=== PATIENT | female | born 1985 | race African-American/Black ===

== ENCOUNTER 2022-10-30 00:10 | Inpatient (IN) | payer SELFPAY ==
[2022-10-30] MEDS ORDERED: SODIUM CHLORIDE 0.9% 500 ML INFUS.BAG IV ONE (00:29)
[2022-10-30] MEDS ORDERED: HYDROmorphone HCl 2 MG/ML VIAL IM ONE ×3 (00:31→02:56)
[2022-10-30] MEDS ORDERED: HYDROmorphone HCl 2 MG/ML VIAL ONE ×3 (00:32→02:57)
[2022-10-30 02:15] LABS: BASO % 1.4 % (0-2.0); EOS % 0.5 % (0-4.5); HEMATOCRIT 30.7 % (32.4-45.2); HEMOGLOBIN 10.1 GM/dL (10.7-15.3); LYMPH % 24.9 % (8-40); MCH 28.6 pg (25.7-33.7); MCHC 32.9 g/dl (32.0-36.0); MEAN CELL VOLUME 86.9 fl (80-96); MEAN PLT VOLUME 9.1 fl (7.5-11.1); MONO % 9.1 % (3.8-10.2); NEUT % 64.1 % (42.8-82.8); PLATELET COUNT 372 10^3/uL (134-434); RBC 3.53 M/mm3 (3.60-5.2); RDW 17.3 % (11.6-15.6); RETICULOCYTES 2.14 % (0.5-1.5); WHITE BLOOD COUNT 8.5 K/mm3 (4.0-10.0)
[2022-10-30 02:30] LABS: POTASSIUM 3.8 mmol/L (3.5-5.1)
[2022-10-30 02:32] LABS: ALBUMIN 3.5 g/dl (3.4-5.0)
[2022-10-30 02:33] LABS: BLOOD UREA NITROGEN 24.9 mg/dL (7-18)
[2022-10-30 02:35] LABS: CREATININE 2.2 mg/dL (0.55-1.3)
[2022-10-30 02:37] LABS: BILIRUBIN,TOTAL 0.3 mg/dL (0.2-1); TOT PROT 7.9 g/dl (6.4-8.2)
[2022-10-30 03:58] LABS: ANISOCYTOSIS 2+; MACROCYTOSIS 0; OVALOCYTE 2+; TEAR DROP CELLS 1+
[2022-10-30] MEDS ORDERED: SODIUM CHLORIDE 1,000 ML IV SCH (05:00)
[2022-10-30] MEDS ORDERED: TRIMETHOBENZAMIDE HCL 200MG/2ML INJ IM PRN (05:12)
[2022-10-30] MEDS: HYDROmorphone HCl 2 MG/ML VIAL IM PRN ×6 (06:13→23:47)
[2022-10-30] MEDS: HEPARIN NA (PORCINE) 5,000 UNITS/ML 1ML VIAL SQ SCH ×3 (06:21→21:55)
[2022-10-30] MEDS ORDERED: INSULIN (NOVOLOG) ASPART 100 UNITS/ML 10ML VIAL ONE ×2 (06:34→16:26)
[2022-10-30] MEDS: INSULIN SLIDING SCALE (NOVOLOG) 1 VIAL SQ SCH ×3 (06:36→16:28)
[2022-10-30 07:45] VITALS: BMI 47.7
[2022-10-30 08:54] LABS: BASO % 2.5 % (0-2.0); EOS % 0.5 % (0-4.5); HEMOGLOBIN 10.1 GM/dL (10.7-15.3); LYMPH % 25.2 % (8-40); MCH 28.7 pg (25.7-33.7); MCHC 32.5 g/dl (32.0-36.0); MEAN CELL VOLUME 88.4 fl (80-96); MEAN PLT VOLUME 9.6 fl (7.5-11.1); MONO % 9.5 % (3.8-10.2); NEUT % 62.3 % (42.8-82.8); PLATELET COUNT 369 10^3/uL (134-434); RBC 3.51 M/mm3 (3.60-5.2); RDW 17.6 % (11.6-15.6); RETICULOCYTES 2.45 % (0.5-1.5); WHITE BLOOD COUNT 8.1 K/mm3 (4.0-10.0)
[2022-10-30] MEDS: FOLIC ACID 1 MG TABLET (FP) PO SCH (09:20)
[2022-10-30 10:20] LABS: POTASSIUM 3.8 mmol/L (3.5-5.1)
[2022-10-30 10:22] LABS: CALCIUM 9.7 mg/dL (8.5-10.1)
[2022-10-30 10:23] LABS: ALBUMIN 3.7 g/dl (3.4-5.0); BLOOD UREA NITROGEN 30.1 mg/dL (7-18); MAGNESIUM 2.1 mg/dL (1.8-2.4)
[2022-10-30 10:26] LABS: PHOSPHOROUS 3.3 mg/dL (2.5-4.9)
[2022-10-30 10:27] LABS: CREATININE 3.4 mg/dL (0.55-1.3)
[2022-10-30 10:28] LABS: BILIRUBIN,TOTAL 0.4 mg/dL (0.2-1); TOT PROT 8.2 g/dl (6.4-8.2)
[2022-10-30] MEDS ORDERED: LIDOCAINE HCL 1%, 10 MG/ML (50 mL VIAL) INF STA (11:55)
[2022-10-30] MEDS ORDERED: LIDOCAINE HCL 1%, 10 MG/ML (10ML VIAL) MDV INF STA (12:02)
[2022-10-30] MEDS: HYDROXYUREA 500 MG CAPSULE PO SCH ×2 (12:29→21:59)
[2022-10-30] MEDS ORDERED: HYDROmorphone HCl 2 MG/ML VIAL IVPB PRN (13:24)
[2022-10-30] MEDS ORDERED: ONDANSETRON 4 MG/2 ML VIAL IVPUSH PRN (14:20)
[2022-10-30] MEDS: SODIUM CHLORIDE 0.45% 1,000 ML IV SCH (14:40)
[2022-10-30] MEDS: GABAPENTIN 300 MG CAPSULE PO SCH ×2 (14:50→21:57)
[2022-10-30] MEDS: LIDOCAINE 5% TOPICAL PATCH TP SCH (14:53)
[2022-10-30] MEDS: ACETAMINOPHEN 500 MG TABLET (FP) PO SCH ×3 (14:54→21:59)
[2022-10-30] MEDS: MICONAZOLE NITRATE 2% VAGINAL CREAM 45 GM TUBE VG SCH (21:57)
[2022-10-30] MEDS: LIDOCAINE PATCH REMOVAL MC SCH (22:07)
[2022-10-31] MEDS: ACETAMINOPHEN 500 MG TABLET (FP) PO SCH ×4 (01:59→21:57)
[2022-10-31] MEDS: HYDROmorphone HCl 2 MG/ML VIAL IM PRN ×7 (03:44→23:42)
[2022-10-31] MEDS: SODIUM CHLORIDE 0.45% 1,000 ML IV SCH ×3 (03:45→13:41)
[2022-10-31 04:22] LABS: EPI CELLS >36 /uL (0-25.1); HYALINE CASTS 21 /uL (0-3.1); URINE APPEARANCE TURBID; URINE BACTERIA 103 /uL (0-1359); URINE BILIRUBIN NEGATIVE (NEGATIVE); URINE COLOR YELLOW; URINE GLUCOSE (UA) 2+ (NEGATIVE); URINE KETONE TRACE (NEGATIVE); URINE LEUK ESTERASE 1+ (NEGATIVE); URINE NITRITE NEGATIVE (NEGATIVE); URINE PROTEIN 3+ (NEGATIVE); URINE UROBILINOGEN 0.2 mg/dL (0.2-1.0); URINE WBC 929 /uL (0-25.8)
[2022-10-31 04:25] LABS: URINE UREA NITROGEN 259 mg/dL (350-1000)
[2022-10-31 04:43] LABS: URINE RBC 28.4 /uL (0-23.9)
[2022-10-31] MEDS: GABAPENTIN 300 MG CAPSULE PO SCH ×3 (06:13→21:05)
[2022-10-31] MEDS: INSULIN SLIDING SCALE (NOVOLOG) 1 VIAL SQ SCH ×3 (06:13→17:12)
[2022-10-31] MEDS: HEPARIN NA (PORCINE) 5,000 UNITS/ML 1ML VIAL SQ SCH ×3 (06:13→21:04)
[2022-10-31] MEDS ORDERED: INSULIN (NOVOLOG) ASPART 100 UNITS/ML 10ML VIAL ONE ×2 (06:19→11:10)
[2022-10-31 08:55] LABS: BASO % 0.8 % (0-2.0); EOS % 1.6 % (0-4.5); HEMATOCRIT 28.5 % (32.4-45.2); HEMOGLOBIN 9.1 GM/dL (10.7-15.3); LYMPH % 40.8 % (8-40); MCH 28.7 pg (25.7-33.7); MCHC 31.9 g/dl (32.0-36.0); MEAN CELL VOLUME 89.9 fl (80-96); MEAN PLT VOLUME 9.7 fl (7.5-11.1); MONO % 9.3 % (3.8-10.2); NEUT % 47.5 % (42.8-82.8); PLATELET COUNT 239 10^3/uL (134-434); RBC 3.17 M/mm3 (3.60-5.2); RDW 17.6 % (11.6-15.6); RETICULOCYTES 2.71 % (0.5-1.5); WHITE BLOOD COUNT 6.7 K/mm3 (4.0-10.0)
[2022-10-31 09:13] LABS: CHLORIDE 99 mmol/L (98-107); POTASSIUM 4.1 mmol/L (3.5-5.1); SODIUM 131 mmol/L (136-145)
[2022-10-31 09:18] LABS: CALCIUM 8.4 mg/dL (8.5-10.1)
[2022-10-31 09:19] LABS: ALBUMIN 3.3 g/dl (3.4-5.0); ANION GAP 8 MMOL/L (8-16); BLOOD UREA NITROGEN 37.9 mg/dL (7-18); CO2 25 mmol/L (21-32); MAGNESIUM 2.1 mg/dL (1.8-2.4)
[2022-10-31 09:20] LABS: SGPT/ALT 19 U/L (13-61)
[2022-10-31 09:21] LABS: CREATININE 4.9 mg/dL (0.55-1.3); SGOT/AST 14 U/L (15-37)
[2022-10-31 09:22] LABS: BILIRUBIN,TOTAL 0.3 mg/dL (0.2-1)
[2022-10-31 09:23] LABS: ALK PHOS 80 U/L (45-117); TOT PROT 7.2 g/dl (6.4-8.2)
[2022-10-31 09:47] LABS: GLUCOSE,RANDOM 405 mg/dL (74-106)
[2022-10-31] MEDS: HYDROXYUREA 500 MG CAPSULE PO SCH ×2 (10:04→21:04)
[2022-10-31] MEDS: FOLIC ACID 1 MG TABLET (FP) PO SCH (10:04)
[2022-10-31] MEDS: LIDOCAINE 5% TOPICAL PATCH TP SCH (10:05)
[2022-10-31] MEDS: CEPHALEXIN MONOHYDRATE 500 MG CAPSULE (UD) PO SCH ×2 (10:06→21:04)
[2022-10-31] MEDS: INSULIN (LEVEMIR) 100 UNITS/ML UNITS SQ SCH ×2 (11:16→21:04)
[2022-10-31] MEDS ORDERED: FLUCONAZOLE 100 MG TABLET (UD) PO ONE (12:08)
[2022-10-31] MEDS: LIDOCAINE PATCH REMOVAL MC SCH (21:04)
[2022-10-31] MEDS: MICONAZOLE NITRATE 2% VAGINAL CREAM 45 GM TUBE VG SCH (21:05)
[2022-11-01] MEDS: ACETAMINOPHEN 500 MG TABLET (FP) PO SCH ×4 (02:54→20:49)
[2022-11-01] MEDS: HYDROmorphone HCl 2 MG/ML VIAL IM PRN ×5 (03:05→21:33)
[2022-11-01] MEDS: SODIUM CHLORIDE 0.45% 1,000 ML IV SCH ×2 (04:49→16:48)
[2022-11-01] MEDS ORDERED: INSULIN (NOVOLOG) ASPART 100 UNITS/ML 10ML VIAL ONE ×4 (05:14→16:31)
[2022-11-01] MEDS: GABAPENTIN 300 MG CAPSULE PO SCH ×3 (06:00→22:38)
[2022-11-01] MEDS: HEPARIN NA (PORCINE) 5,000 UNITS/ML 1ML VIAL SQ SCH ×3 (06:00→22:36)
[2022-11-01] MEDS: INSULIN (LEVEMIR) 100 UNITS/ML UNITS SQ SCH ×2 (06:00→22:38)
[2022-11-01] MEDS: INSULIN SLIDING SCALE (NOVOLOG) 1 VIAL SQ SCH ×4 (06:00→22:40)
[2022-11-01] MEDS ORDERED: HYDROmorphone HCl 2 MG/ML VIAL IM PRN ×2 (08:24→08:31)
[2022-11-01 08:37] LABS: BASO % 0.4 % (0-2.0); EOS % 1.8 % (0-4.5); HEMATOCRIT 26.2 % (32.4-45.2); HEMOGLOBIN 8.7 GM/dL (10.7-15.3); LYMPH % 38.1 % (8-40); MCH 29.7 pg (25.7-33.7); MCHC 33.3 g/dl (32.0-36.0); MEAN CELL VOLUME 89.1 fl (80-96); MONO % 8.4 % (3.8-10.2); NEUT % 51.3 % (42.8-82.8); PLATELET COUNT 223 10^3/uL (134-434); RBC 2.94 M/mm3 (3.60-5.2); RDW 17.5 % (11.6-15.6); WHITE BLOOD COUNT 6.1 K/mm3 (4.0-10.0)
[2022-11-01 09:03] LABS: POTASSIUM 4.3 mmol/L (3.5-5.1)
[2022-11-01 09:10] LABS: BLOOD UREA NITROGEN 38.1 mg/dL (7-18); CALCIUM 8.7 mg/dL (8.5-10.1)
[2022-11-01 09:13] LABS: CREATININE 2.6 mg/dL (0.55-1.3)
[2022-11-01 09:15] LABS: BILIRUBIN,TOTAL 0.4 mg/dL (0.2-1)
[2022-11-01] MEDS: LIDOCAINE 5% TOPICAL PATCH TP SCH (09:28)
[2022-11-01] MEDS: HYDROXYUREA 500 MG CAPSULE PO SCH ×2 (09:28→22:41)
[2022-11-01] MEDS: CEPHALEXIN MONOHYDRATE 500 MG CAPSULE (UD) PO SCH ×2 (09:28→22:38)
[2022-11-01] MEDS: FOLIC ACID 1 MG TABLET (FP) PO SCH (09:29)
[2022-11-01] MEDS: MICONAZOLE NITRATE 2% VAGINAL CREAM 45 GM TUBE VG SCH (22:42)
[2022-11-01] MEDS: LIDOCAINE PATCH REMOVAL MC SCH (22:43)
[2022-11-02] MEDS: HYDROmorphone HCl 2 MG/ML VIAL IM PRN ×2 (02:02→06:07)
[2022-11-02] MEDS: ACETAMINOPHEN 500 MG TABLET (FP) PO SCH ×4 (02:30→20:12)
[2022-11-02] MEDS: HEPARIN NA (PORCINE) 5,000 UNITS/ML 1ML VIAL SQ SCH ×3 (07:10→21:31)
[2022-11-02] MEDS: GABAPENTIN 300 MG CAPSULE PO SCH ×3 (07:11→21:30)
[2022-11-02] MEDS: INSULIN (LEVEMIR) 100 UNITS/ML UNITS SQ SCH ×2 (07:12→21:43)
[2022-11-02] MEDS: INSULIN SLIDING SCALE (NOVOLOG) 1 VIAL SQ SCH ×4 (07:14→21:42)
[2022-11-02] MEDS ORDERED: HYDROmorphone HCl 2 MG/ML VIAL IM PRN (07:18)
[2022-11-02 08:05] LABS: POTASSIUM 4.2 mmol/L (3.5-5.1)
[2022-11-02 08:11] LABS: ALBUMIN 2.9 g/dl (3.4-5.0); BASO % 0.8 % (0-2.0); BLOOD UREA NITROGEN 35.7 mg/dL (7-18); HEMATOCRIT 25.7 % (32.4-45.2); HEMOGLOBIN 8.4 GM/dL (10.7-15.3); LYMPH % 45.8 % (8-40); MCHC 32.8 g/dl (32.0-36.0); MEAN CELL VOLUME 88.5 fl (80-96); MEAN PLT VOLUME 9.9 fl (7.5-11.1); MONO % 7.4 % (3.8-10.2); PLATELET COUNT 211 10^3/uL (134-434); RDW 17.3 % (11.6-15.6); WHITE BLOOD COUNT 5.9 K/mm3 (4.0-10.0)
[2022-11-02 08:14] LABS: CREATININE 1.9 mg/dL (0.55-1.3)
[2022-11-02 08:15] LABS: BILIRUBIN,TOTAL 0.2 mg/dL (0.2-1)
[2022-11-02 08:16] LABS: TOT PROT 6.6 g/dl (6.4-8.2)
[2022-11-02] MEDS: HYDROXYUREA 500 MG CAPSULE PO SCH ×2 (10:12→21:30)
[2022-11-02] MEDS: CEPHALEXIN MONOHYDRATE 500 MG CAPSULE (UD) PO SCH ×2 (10:12→21:30)
[2022-11-02] MEDS: FOLIC ACID 1 MG TABLET (FP) PO SCH (10:12)
[2022-11-02] MEDS: LIDOCAINE 5% TOPICAL PATCH TP SCH (10:14)
[2022-11-02] MEDS ORDERED: amLODIPine BESYLATE 5 MG TABLET (FP) PO ONE ×2 (11:15→14:40)
[2022-11-02] MEDS ORDERED: INSULIN (NOVOLOG) ASPART 100 UNITS/ML 10ML VIAL ONE ×3 (11:48→21:40)
[2022-11-02] MEDS: SODIUM CHLORIDE 0.45% 1,000 ML IV SCH (15:01)
[2022-11-02] MEDS ORDERED: hydrALAZINE HCL 10 MG TABLET PO ONE (18:38)
[2022-11-02] MEDS: hydrALAZINE HCL 10 MG TABLET PO SCH (21:30)
[2022-11-02] MEDS: MICONAZOLE NITRATE 2% VAGINAL CREAM 45 GM TUBE VG SCH (21:45)
[2022-11-02] MEDS: LIDOCAINE PATCH REMOVAL MC SCH (21:47)
[2022-11-03] MEDS: ACETAMINOPHEN 500 MG TABLET (FP) PO SCH ×4 (03:21→14:18)
[2022-11-03] MEDS: GABAPENTIN 300 MG CAPSULE PO SCH ×2 (06:12→13:13)
[2022-11-03] MEDS: HEPARIN NA (PORCINE) 5,000 UNITS/ML 1ML VIAL SQ SCH ×2 (06:12→13:13)
[2022-11-03] MEDS: hydrALAZINE HCL 10 MG TABLET PO SCH ×2 (06:13→13:12)
[2022-11-03] MEDS: INSULIN (LEVEMIR) 100 UNITS/ML UNITS SQ SCH (06:13)
[2022-11-03] MEDS: INSULIN SLIDING SCALE (NOVOLOG) 1 VIAL SQ SCH ×3 (06:25→16:23)
[2022-11-03] MEDS: HYDROXYUREA 500 MG CAPSULE PO SCH (09:02)
[2022-11-03] MEDS: FOLIC ACID 1 MG TABLET (FP) PO SCH (09:02)
[2022-11-03] MEDS: LIDOCAINE 5% TOPICAL PATCH TP SCH (09:04)
[2022-11-03] MEDS ORDERED: amLODIPine BESYLATE 5 MG TABLET (FP) PO SCH ×2 (10:00→11:16)
[2022-11-03] MEDS ORDERED: HYDROmorphone HCL 2 MG TABLET ONE ×2 (10:14→14:19)
[2022-11-03 10:31] VITALS: RESP 20
[2022-11-03] MEDS ORDERED: INSULIN (NOVOLOG) ASPART 100 UNITS/ML 10ML VIAL ONE ×2 (11:21→19:40)
[2022-11-03 18:35] VITALS: BP 165/99; PULSE 89; TEMP 98.4
== END 2022-11-03 18:28 | disposition home or self-care (01) | DRG 662 ==
LOC: JER 00:10 → JERBED 02:58 → J8W 05:45
PROVIDERS: ADMIT Internal Medicine; ATTEND Nurse Practitioner Family
PROC: 05HN33Z Insertion of Infusion Device into Left Internal Jugular Vein, Percutaneous Approach (ICD-10-PCS; principal; 2022-10-30)
PROC: B544ZZA Ultrasonography of Left Jugular Veins, Guidance (ICD-10-PCS; 2022-10-30)
DX: D57.00 Hb-SS disease with crisis, unspecified (principal); E66.01 Morbid (severe) obesity due to excess calories; Z68.42 Body mass index [BMI] 45.0-49.9, adult; R00.0 Tachycardia, unspecified; N17.9 Acute kidney failure, unspecified; R73.9 Hyperglycemia, unspecified; L29.2 Pruritus vulvae; B37.31 Acute candidiasis of vulva and vagina; N39.0 Urinary tract infection, site not specified
CPT/HCPCS: 36415; 71045-TC-FY; 76775-TC; 80053; 81003; 82436; 82550; 82553; 82570; 82728; 82962; 83010; 83036; 83550; 83735; 84100; 84133; 84156; 84300; 84540; 84703; 85025; 85045; 86850; 86900; 86901; 87086; 93005; 93010; 99285-25; C9803-CS; J1644; J8999; U0003; U0005

== ENCOUNTER 2022-11-06 13:49 | Inpatient (IN) | payer SELFPAY ==
[2022-11-06] MEDS ORDERED: SODIUM CHLORIDE 0.9% 500 ML INFUS.BAG IV ONE ×2 (14:04→16:36)
[2022-11-06] MEDS ORDERED: HYDROmorphone HCl 2 MG/ML VIAL IVPUSH ONE ×2 (14:23→16:43)
[2022-11-06] MEDS ORDERED: HYDROmorphone HCl 2 MG/ML VIAL IM ONE ×3 (14:42→20:48)
[2022-11-06] MEDS ORDERED: HYDROmorphone HCl 2 MG/ML VIAL ONE ×4 (14:48→20:54)
[2022-11-06 16:16] LABS: BASO % 0.8 % (0-2.0); EOS % 0.9 % (0-4.5); HEMATOCRIT 33.1 % (32.4-45.2); HEMOGLOBIN 10.8 GM/dL (10.7-15.3); LYMPH % 40.8 % (8-40); MCH 28.5 pg (25.7-33.7); MCHC 32.6 g/dl (32.0-36.0); MEAN CELL VOLUME 87.4 fl (80-96); MEAN PLT VOLUME 8.6 fl (7.5-11.1); MONO % 8.6 % (3.8-10.2); NEUT % 48.9 % (42.8-82.8); PLATELET COUNT 308 10^3/uL (134-434); RBC 3.79 M/mm3 (3.60-5.2); RDW 17.5 % (11.6-15.6); WHITE BLOOD COUNT 5.8 K/mm3 (4.0-10.0)
[2022-11-06 16:31] LABS: POTASSIUM 4.4 mmol/L (3.5-5.1)
[2022-11-06 16:32] LABS: CALCIUM 9.2 mg/dL (8.5-10.1)
[2022-11-06 16:33] LABS: ALBUMIN 3.4 g/dl (3.4-5.0); BLOOD UREA NITROGEN 18.2 mg/dL (7-18)
[2022-11-06 16:36] LABS: CREATININE 1.6 mg/dL (0.55-1.3)
[2022-11-06 16:38] LABS: BILIRUBIN,TOTAL 0.4 mg/dL (0.2-1); TOT PROT 7.9 g/dl (6.4-8.2)
[2022-11-06] MEDS ORDERED: ACETAMINOPHEN 1000 MG/100 ML BAG IVPB PRN ×2 (22:18→22:22)
[2022-11-06] MEDS ORDERED: GABAPENTIN 300 MG CAPSULE ONE (22:29)
[2022-11-06] MEDS: INSULIN SLIDING SCALE (NOVOLOG) 1 VIAL SQ SCH (22:34)
[2022-11-06] MEDS: GABAPENTIN 300 MG CAPSULE PO SCH (22:34)
[2022-11-06] MEDS ORDERED: HYDROmorphone HCL 2 MG TABLET PO PRN (22:40)
[2022-11-06] MEDS ORDERED: TRIMETHOBENZAMIDE HCL 200MG/2ML INJ IM PRN (22:48)
[2022-11-06 23:21] LABS: RETICULOCYTES 2.72 % (0.5-1.5)
[2022-11-07] MEDS ORDERED: HYDROmorphone HCL 2 MG TABLET PO PRN (02:52)
[2022-11-07] MEDS: HYDROmorphone HCl 2 MG/ML VIAL IM PRN ×5 (03:06→21:38)
[2022-11-07] MEDS: SODIUM CHLORIDE 1,000 ML IV SCH ×2 (03:13→05:25)
[2022-11-07] MEDS: ACETAMINOPHEN 1000 MG/100 ML BAG IVPB SCH ×3 (05:26→21:35)
[2022-11-07] MEDS: HEPARIN NA (PORCINE) 5,000 UNITS/ML 1ML VIAL SQ SCH ×3 (05:26→21:34)
[2022-11-07] MEDS: GABAPENTIN 300 MG CAPSULE PO SCH ×3 (05:26→21:34)
[2022-11-07] MEDS: INSULIN SLIDING SCALE (NOVOLOG) 1 VIAL SQ SCH ×3 (07:05→16:56)
[2022-11-07 09:21] VITALS: BMI 43.2
[2022-11-07] MEDS: HYDROXYUREA 500 MG CAPSULE PO SCH ×2 (10:18→21:34)
[2022-11-07] MEDS: FOLIC ACID 1 MG TABLET (FP) PO SCH (10:18)
[2022-11-07] MEDS: LIDOCAINE 5% TOPICAL PATCH TP SCH (10:18)
[2022-11-07] MEDS ORDERED: INSULIN (NOVOLOG) ASPART 100 UNITS/ML 10ML VIAL ONE ×2 (11:34→16:52)
[2022-11-07] MEDS: INSULIN (LEVEMIR) 100 UNITS/ML UNITS SQ SCH ×2 (11:38→21:38)
[2022-11-07] MEDS ORDERED: DOCUSATE SODIUM 100 MG CAPSULE (FP) PO PRN (12:12)
[2022-11-07] MEDS: POLYETHYLENE GLYCOL (HEALTHYLAX) 3350 17 GM PACKET PO SCH ×2 (12:42→21:34)
[2022-11-07] MEDS: LIDOCAINE PATCH REMOVAL MC SCH ×2 (20:22→21:50)
[2022-11-08] MEDS: HYDROmorphone HCl 2 MG/ML VIAL IM PRN ×6 (02:11→23:28)
[2022-11-08] MEDS: INSULIN SLIDING SCALE (NOVOLOG) 1 VIAL SQ SCH ×3 (06:20→17:23)
[2022-11-08] MEDS: HEPARIN NA (PORCINE) 5,000 UNITS/ML 1ML VIAL SQ SCH ×3 (06:21→21:41)
[2022-11-08] MEDS: GABAPENTIN 300 MG CAPSULE PO SCH ×3 (06:21→21:42)
[2022-11-08] MEDS: ACETAMINOPHEN 1000 MG/100 ML BAG IVPB SCH ×3 (06:24→21:43)
[2022-11-08] MEDS ORDERED: INSULIN (NOVOLOG) ASPART 100 UNITS/ML 10ML VIAL ONE ×2 (10:28→17:19)
[2022-11-08] MEDS: FOLIC ACID 1 MG TABLET (FP) PO SCH (10:48)
[2022-11-08] MEDS: HYDROXYUREA 500 MG CAPSULE PO SCH ×2 (10:48→21:41)
[2022-11-08] MEDS: INSULIN (LEVEMIR) 100 UNITS/ML UNITS SQ SCH ×2 (10:50→21:42)
[2022-11-08] MEDS: LIDOCAINE 5% TOPICAL PATCH TP SCH (11:01)
[2022-11-08] MEDS: POLYETHYLENE GLYCOL (HEALTHYLAX) 3350 17 GM PACKET PO SCH ×2 (11:01→21:41)
[2022-11-08] MEDS ORDERED: ALPRAZolam 1 MG TABLET PO PRN (11:05)
[2022-11-08] MEDS: LIDOCAINE PATCH REMOVAL MC SCH (21:43)
[2022-11-09] MEDS: HYDROmorphone HCl 2 MG/ML VIAL IM PRN ×4 (04:08→22:07)
[2022-11-09] MEDS: HEPARIN NA (PORCINE) 5,000 UNITS/ML 1ML VIAL SQ SCH ×3 (05:22→22:06)
[2022-11-09] MEDS: GABAPENTIN 300 MG CAPSULE PO SCH ×3 (05:22→22:07)
[2022-11-09] MEDS: ACETAMINOPHEN 1000 MG/100 ML BAG IVPB SCH ×2 (06:22→19:03)
[2022-11-09] MEDS: INSULIN SLIDING SCALE (NOVOLOG) 1 VIAL SQ SCH ×4 (06:22→22:10)
[2022-11-09] MEDS: POLYETHYLENE GLYCOL (HEALTHYLAX) 3350 17 GM PACKET PO SCH ×2 (09:00→22:06)
[2022-11-09] MEDS: INSULIN (LEVEMIR) 100 UNITS/ML UNITS SQ SCH (09:00)
[2022-11-09] MEDS: HYDROXYUREA 500 MG CAPSULE PO SCH ×2 (09:01→22:07)
[2022-11-09] MEDS: FOLIC ACID 1 MG TABLET (FP) PO SCH (09:01)
[2022-11-09] MEDS ORDERED: INSULIN (NOVOLOG) ASPART 100 UNITS/ML 10ML VIAL ONE ×3 (12:02→22:08)
[2022-11-09] MEDS: LIDOCAINE 5% TOPICAL PATCH TP SCH (12:20)
[2022-11-09] MEDS ORDERED: HYDROmorphone HCl 2 MG/ML VIAL IM PRN ×2 (12:21→15:14)
[2022-11-09 13:04] LABS: BASO % 0.6 % (0-2.0); EOS % 2.5 % (0-4.5); HEMATOCRIT 27.4 % (32.4-45.2); HEMOGLOBIN 9.4 GM/dL (10.7-15.3); LYMPH % 41.8 % (8-40); MCH 30.6 pg (25.7-33.7); MCHC 34.4 g/dl (32.0-36.0); MEAN PLT VOLUME 9.5 fl (7.5-11.1); MONO % 8.1 % (3.8-10.2); PLATELET COUNT 231 10^3/uL (134-434); RBC 3.07 M/mm3 (3.60-5.2); WHITE BLOOD COUNT 6.7 K/mm3 (4.0-10.0)
[2022-11-09 13:20] LABS: POTASSIUM 5.3 mmol/L (3.5-5.1)
[2022-11-09 13:23] LABS: ALBUMIN 3.4 g/dl (3.4-5.0)
[2022-11-09 13:24] LABS: BLOOD UREA NITROGEN 40.7 mg/dL (7-18); MAGNESIUM 2.3 mg/dL (1.8-2.4)
[2022-11-09 13:27] LABS: CREATININE 1.9 mg/dL (0.55-1.3)
[2022-11-09 13:29] LABS: BILIRUBIN,TOTAL 0.2 mg/dL (0.2-1); TOT PROT 7.6 g/dl (6.4-8.2)
[2022-11-09] MEDS ORDERED: INSULIN (NOVOLOG) ASPART 100 UNITS/ML 10ML VIAL SQ ONE (13:45)
[2022-11-09] MEDS: amLODIPine BESYLATE 5 MG TABLET (FP) PO SCH (14:39)
[2022-11-09] MEDS: SODIUM CHLORIDE 1,000 ML IV SCH (15:20)
[2022-11-09] MEDS: ACETAMINOPHEN 500 MG TABLET (FP) PO SCH ×3 (16:10→22:07)
[2022-11-09] MEDS: INSULIN (NOVOLOG) ASPART 100 UNITS/ML 10ML VIAL SQ SCH (18:14)
[2022-11-09] MEDS ORDERED: INSULIN (LEVEMIR) 100 UNITS/ML UNITS SQ SCH (20:00)
[2022-11-09] MEDS: LIDOCAINE PATCH REMOVAL MC SCH (22:08)
[2022-11-10] MEDS: HYDROmorphone HCl 2 MG/ML VIAL IM PRN ×2 (04:15→10:11)
[2022-11-10] MEDS: ACETAMINOPHEN 500 MG TABLET (FP) PO SCH ×3 (06:30→22:38)
[2022-11-10] MEDS: GABAPENTIN 300 MG CAPSULE PO SCH ×4 (06:30→22:38)
[2022-11-10] MEDS: HEPARIN NA (PORCINE) 5,000 UNITS/ML 1ML VIAL SQ SCH ×3 (06:30→22:37)
[2022-11-10] MEDS: INSULIN SLIDING SCALE (NOVOLOG) 1 VIAL SQ SCH ×4 (06:36→22:37)
[2022-11-10] MEDS: INSULIN (NOVOLOG) ASPART 100 UNITS/ML 10ML VIAL SQ SCH ×3 (06:37→17:07)
[2022-11-10] MEDS: INSULIN (LEVEMIR) 100 UNITS/ML UNITS SQ SCH ×2 (08:54→22:36)
[2022-11-10] MEDS: LIDOCAINE 5% TOPICAL PATCH TP SCH (09:00)
[2022-11-10] MEDS: amLODIPine BESYLATE 5 MG TABLET (FP) PO SCH (09:01)
[2022-11-10] MEDS: FOLIC ACID 1 MG TABLET (FP) PO SCH (09:01)
[2022-11-10] MEDS: HYDROXYUREA 500 MG CAPSULE PO SCH ×2 (09:01→22:37)
[2022-11-10] MEDS: POLYETHYLENE GLYCOL (HEALTHYLAX) 3350 17 GM PACKET PO SCH ×2 (09:01→22:37)
[2022-11-10 09:09] VITALS: RESP 18
[2022-11-10] MEDS ORDERED: HYDROmorphone HCL 2 MG TABLET PO PRN (09:11)
[2022-11-10 10:41] LABS: BASO % 0.9 % (0-2.0); EOS % 2.7 % (0-4.5); HEMATOCRIT 29.7 % (32.4-45.2); HEMOGLOBIN 9.6 GM/dL (10.7-15.3); LYMPH % 47.8 % (8-40); MCH 28.9 pg (25.7-33.7); MCHC 32.3 g/dl (32.0-36.0); MEAN CELL VOLUME 89.2 fl (80-96); MEAN PLT VOLUME 9.2 fl (7.5-11.1); MONO % 6.6 % (3.8-10.2); PLATELET COUNT 254 10^3/uL (134-434); RBC 3.33 M/mm3 (3.60-5.2); RDW 17.6 % (11.6-15.6); WHITE BLOOD COUNT 6.3 K/mm3 (4.0-10.0)
[2022-11-10 11:00] LABS: POTASSIUM 4.9 mmol/L (3.5-5.1)
[2022-11-10 11:02] LABS: ALBUMIN 3.6 g/dl (3.4-5.0); CALCIUM 8.9 mg/dL (8.5-10.1)
[2022-11-10 11:03] LABS: BLOOD UREA NITROGEN 40.8 mg/dL (7-18); MAGNESIUM 2.3 mg/dL (1.8-2.4)
[2022-11-10 11:06] LABS: CREATININE 1.9 mg/dL (0.55-1.3)
[2022-11-10 11:07] LABS: BILIRUBIN,TOTAL 0.2 mg/dL (0.2-1); TOT PROT 8.1 g/dl (6.4-8.2)
[2022-11-10] MEDS ORDERED: MAG HYDROX/AL HYDROX/SIMETH 30 ML UNIT-DOSE CUP PO ONE (11:41)
[2022-11-10] MEDS: FAMOTIDINE 20 MG TABLET PO SCH ×2 (13:13→22:38)
[2022-11-10] MEDS: SODIUM CHLORIDE 1,000 ML IV SCH (16:53)
[2022-11-10] MEDS: LIDOCAINE PATCH REMOVAL MC SCH (22:41)
[2022-11-11] MEDS: ACETAMINOPHEN 500 MG TABLET (FP) PO SCH (06:35)
[2022-11-11] MEDS: HEPARIN NA (PORCINE) 5,000 UNITS/ML 1ML VIAL SQ SCH (06:35)
[2022-11-11] MEDS: GABAPENTIN 300 MG CAPSULE PO SCH (06:35)
[2022-11-11] MEDS: INSULIN (NOVOLOG) ASPART 100 UNITS/ML 10ML VIAL SQ SCH ×2 (06:37→11:54)
[2022-11-11] MEDS: INSULIN SLIDING SCALE (NOVOLOG) 1 VIAL SQ SCH ×2 (06:47→11:54)
[2022-11-11 08:49] VITALS: BP 152/104; PULSE 97; TEMP 97.9
[2022-11-11] MEDS: HYDROXYUREA 500 MG CAPSULE PO SCH ×2 (08:53→09:31)
[2022-11-11] MEDS: FAMOTIDINE 20 MG TABLET PO SCH ×2 (08:53→09:31)
[2022-11-11] MEDS: amLODIPine BESYLATE 5 MG TABLET (FP) PO SCH ×2 (08:53→09:31)
[2022-11-11] MEDS: INSULIN (LEVEMIR) 100 UNITS/ML UNITS SQ SCH (08:53)
[2022-11-11] MEDS: FOLIC ACID 1 MG TABLET (FP) PO SCH ×2 (08:53→09:31)
[2022-11-11] MEDS: POLYETHYLENE GLYCOL (HEALTHYLAX) 3350 17 GM PACKET PO SCH (09:31)
[2022-11-11] MEDS: LIDOCAINE 5% TOPICAL PATCH TP SCH (11:46)
== END 2022-11-11 13:20 | disposition home or self-care (01) | DRG 662 ==
LOC: JER 13:49 → INTOOBSV 21:27 → JERBED 21:27 → J7W 23:55 → OBSVTOIN 11-09 13:29
PROVIDERS: ADMIT Internal Medicine; ATTEND Internal Medicine
DX: D57.00 Hb-SS disease with crisis, unspecified (principal); E78.5 Hyperlipidemia, unspecified; E66.01 Morbid (severe) obesity due to excess calories; Z68.41 Body mass index [BMI] 40.0-44.9, adult; N17.9 Acute kidney failure, unspecified; R11.2 Nausea with vomiting, unspecified; E11.65 Type 2 diabetes mellitus with hyperglycemia; F39 Unspecified mood [affective] disorder; R52 Pain, unspecified; I12.9 Hypertensive chronic kidney disease with stage 1 through stage 4 chronic kidney disease, or unspecified chronic kidney disease; E11.22 Type 2 diabetes mellitus with diabetic chronic kidney disease; N18.9 Chronic kidney disease, unspecified
CPT/HCPCS: 0241U-QW; 36415; 71045-TC-FY; 76775-TC; 80053; 82962; 83021; 83615; 83735; 84703; 85025; 85045; 85660; 86850; 86900; 86901; 93005; 93010; 99285-25; G0378; J1644; J8999

== ENCOUNTER 2022-11-29 18:58 | Emergency (ER) | payer SELFPAY ==
[2022-11-29 19:03] VITALS: BP 150/96; PULSE 85; RESP 20; TEMP 98.2; BMI 45.1
== END 2022-11-29 21:00 | disposition left against medical advice (07) ==
LOC: JER 18:58
DX: D57.1 Sickle-cell disease without crisis (principal); R52 Pain, unspecified
CPT/HCPCS: 99281-25